=== PATIENT | male | born 1995 | race Caucasian/White ===

== ENCOUNTER 2024-05-04 11:39 | Emergency (ER) | payer SELFPAY | END 2024-05-04 16:33 | disposition home or self-care (01) | LOC: MW.ED 11:39 | DX: S67.190A Crushing injury of right index finger, initial encounter (principal); S67.194A Crushing injury of right ring finger, initial encounter; S60.131A Contusion of right middle finger with damage to nail, initial encounter; Z75.8 Other problems related to medical facilities and other health care; W23.0XXA Caught, crushed, jammed, or pinched between moving objects, initial encounter | CPT/HCPCS: 73130-26-RT; 73130-RT; 99283 ==